=== PATIENT | female | born 1970 | race Two or more races ===

== ENCOUNTER → 2018-01-05 | Outpatient (CLI) | payer OTHER ==
[~2018-01-05] MED LIST: ARMOUR THYROID120 M1; BALANCED B; HCTZ; HYDROCHLOROTH12.5 M1; NABUMETONE500 MG PO; PANADOL EXTRA500 MG; PERCOCET 5/3251 TAB PO
== END | disposition home or self-care (01) ==
LOC: LAB 09:30
DX: D50.8 Other iron deficiency anemias (principal); I10 Essential (primary) hypertension; E03.8 Other specified hypothyroidism; D51.8 Other vitamin B12 deficiency anemias; A09 Infectious gastroenteritis and colitis, unspecified; E78.2 Mixed hyperlipidemia

== ENCOUNTER 2018-01-07 13:09 | Outpatient (CLI) | payer OTHER | END 2018-01-07 13:15 | disposition home or self-care (01) | LOC: LAB 13:09 | DX: D72.0 Genetic anomalies of leukocytes (principal) ==

== ENCOUNTER 2018-03-09 08:17 | Outpatient (CLI) | payer OTHER | END 2018-03-09 08:23 | disposition home or self-care (01) | LOC: LAB 08:17 | DX: Z02.1 Encounter for pre-employment examination (principal) ==

== ENCOUNTER 2018-05-01 08:07 | Outpatient (CLI) | payer OTHER | END 2018-05-01 08:15 | disposition home or self-care (01) | LOC: LAB 08:07 | DX: D55.0 Anemia due to glucose-6-phosphate dehydrogenase [G6PD] deficiency (principal); D68.8 Other specified coagulation defects; N39.0 Urinary tract infection, site not specified; I10 Essential (primary) hypertension; E03.8 Other specified hypothyroidism; E11.9 Type 2 diabetes mellitus without complications; D51.0 Vitamin B12 deficiency anemia due to intrinsic factor deficiency ==

== ENCOUNTER 2018-06-12 07:22 | Outpatient (CLI) | payer OTHER | END 2018-06-12 07:32 | disposition home or self-care (01) | LOC: LAB 07:22 | DX: N91.3 Primary oligomenorrhea (principal); E03.8 Other specified hypothyroidism ==

== ENCOUNTER 2018-06-16 12:32 | Outpatient (CLI) | payer OTHER | END 2018-06-16 15:53 | disposition home or self-care (01) | LOC: RAD 501 12:32 | DX: M75.102 Unspecified rotator cuff tear or rupture of left shoulder, not specified as traumatic (principal) ==

== ENCOUNTER 2018-08-12 14:25 | Outpatient (CLI) | payer OTHER | END 2018-08-12 14:40 | disposition home or self-care (01) | LOC: RAD 501 14:25 | DX: J22 Unspecified acute lower respiratory infection (principal) ==

== ENCOUNTER 2018-10-09 14:36 | Outpatient (CLI) | payer OTHER | END 2018-10-09 14:39 | disposition home or self-care (01) | LOC: MAMO-SONO 14:36 | DX: N60.11 Diffuse cystic mastopathy of right breast (principal); Z12.31 Encounter for screening mammogram for malignant neoplasm of breast ==

== ENCOUNTER 2018-12-11 08:38 | Outpatient (CLI) | payer OTHER | END 2018-12-11 08:45 | disposition home or self-care (01) | LOC: LAB 08:38 | DX: I10 Essential (primary) hypertension (principal); E03.8 Other specified hypothyroidism; E78.2 Mixed hyperlipidemia; E11.9 Type 2 diabetes mellitus without complications; I50.20 Unspecified systolic (congestive) heart failure; I26.90 Septic pulmonary embolism without acute cor pulmonale; I21.4 Non-ST elevation (NSTEMI) myocardial infarction ==

== ENCOUNTER → 2019-05-14 09:20 | Outpatient (CLI) | payer OTHER | END | disposition home or self-care (01) | LOC: RAD 09:20 | DX: M75.101 Unspecified rotator cuff tear or rupture of right shoulder, not specified as traumatic (principal); M75.102 Unspecified rotator cuff tear or rupture of left shoulder, not specified as traumatic; M54.2 Cervicalgia ==

== ENCOUNTER → 2019-07-21 | Outpatient (CLI) | payer OTHER | END | disposition home or self-care (01) | LOC: RAD 10:32 | DX: R05 Cough (principal) ==

== ENCOUNTER 2019-09-01 12:49 | Outpatient (CLI) | payer OTHER ==
[~2019-09-01] VITALS: Ht 162.6 cm; Wt 112.0 kg
== END 2019-09-01 13:15 | disposition home or self-care (01) ==
LOC: OFIC 805 12:49
DX: H81.12 Benign paroxysmal vertigo, left ear (principal)

== ENCOUNTER → 2019-10-01 | Outpatient (CLI) | payer OTHER | END | disposition home or self-care (01) | LOC: MRI 09:13 | DX: H81.10 Benign paroxysmal vertigo, unspecified ear (principal) | CPT/HCPCS: 70551 ==

== ENCOUNTER 2020-04-07 07:31 | Outpatient (CLI) | payer OTHER | END 2020-04-07 15:00 | disposition home or self-care (01) | LOC: LAB 07:31 | PROVIDERS: ATTEND Internal Medicine Hematology & Oncology | DX: E03.8 Other specified hypothyroidism (principal); I10 Essential (primary) hypertension; E11.9 Type 2 diabetes mellitus without complications; D51.3 Other dietary vitamin B12 deficiency anemia; N91.0 Primary amenorrhea; D55.0 Anemia due to glucose-6-phosphate dehydrogenase [G6PD] deficiency; R97.8 Other abnormal tumor markers; N80.0 Endometriosis of uterus; C54.1 Malignant neoplasm of endometrium ==

== ENCOUNTER 2020-04-07 10:30 | Outpatient (CLI) | payer OTHER | END 2020-04-07 10:37 | disposition home or self-care (01) | LOC: MAMO-SONO 10:30 | PROVIDERS: ATTEND Internal Medicine Hematology & Oncology | DX: Z12.31 Encounter for screening mammogram for malignant neoplasm of breast (principal); N63.10 Unspecified lump in the right breast, unspecified quadrant; N63.20 Unspecified lump in the left breast, unspecified quadrant ==

== ENCOUNTER 2020-05-04 09:38 | Outpatient (CLI) | payer OTHER | END 2020-05-04 16:29 | disposition home or self-care (01) | LOC: LAB 09:38 | PROVIDERS: ATTEND Internal Medicine Hematology & Oncology | DX: Z20.828 Contact with and (suspected) exposure to other viral communicable diseases (principal); Z11.59 Encounter for screening for other viral diseases ==

== ENCOUNTER → 2020-07-26 16:29 | Outpatient (CLI) | payer OTHER | END | disposition home or self-care (01) | LOC: LAB 16:29 | PROVIDERS: ATTEND Internal Medicine Hematology & Oncology | DX: J11.1 Influenza due to unidentified influenza virus with other respiratory manifestations (principal); Z20.828 Contact with and (suspected) exposure to other viral communicable diseases; R50.9 Fever, unspecified; D55.0 Anemia due to glucose-6-phosphate dehydrogenase [G6PD] deficiency; A49.8 Other bacterial infections of unspecified site ==

== ENCOUNTER 2020-08-08 17:39 | Outpatient (CLI) | payer OTHER | END 2020-08-08 19:14 | disposition home or self-care (01) | LOC: PPH VACUNA 17:39 | DX: Z23 Encounter for immunization (principal) ==

== ENCOUNTER → 2020-09-18 09:35 | Outpatient (CLI) | payer OTHER | END | disposition home or self-care (01) | LOC: LAB 09:35 | PROVIDERS: ATTEND Internal Medicine Hematology & Oncology | DX: Z20.828 Contact with and (suspected) exposure to other viral communicable diseases (principal); D50.8 Other iron deficiency anemias; I10 Essential (primary) hypertension; R05 Cough; E03.8 Other specified hypothyroidism; E11.9 Type 2 diabetes mellitus without complications; E78.2 Mixed hyperlipidemia; D51.3 Other dietary vitamin B12 deficiency anemia ==

== ENCOUNTER 2020-09-18 10:20 | Outpatient (CLI) | payer OTHER | END 2020-09-18 15:44 | disposition home or self-care (01) | LOC: TOM 10:20 → OFIC 805 10:20 → TOM 15:44 | PROVIDERS: ATTEND Radiology Diagnostic Radiology | DX: G45.1 Carotid artery syndrome (hemispheric) (principal) ==

== ENCOUNTER 2020-10-10 15:09 | Outpatient (CLI) | payer OTHER | END 2020-10-10 18:00 | disposition home or self-care (01) | LOC: PPH VACUNA 15:09 | DX: Z23 Encounter for immunization (principal) ==

== ENCOUNTER 2020-11-27 08:13 | Outpatient (CLI) | payer OTHER | END 2020-11-27 08:19 | disposition home or self-care (01) | LOC: LAB 08:13 | PROVIDERS: ATTEND Internal Medicine Hematology & Oncology | DX: D50.8 Other iron deficiency anemias (principal); I10 Essential (primary) hypertension; E03.8 Other specified hypothyroidism; E78.2 Mixed hyperlipidemia; D51.3 Other dietary vitamin B12 deficiency anemia; E11.9 Type 2 diabetes mellitus without complications ==

== ENCOUNTER 2021-01-07 01:27 | Emergency (ER) | payer OTHER ==
[~2021-01-07] VITALS: Ht 162.6 cm; Wt 105.2 kg
== END 2021-01-07 04:02 | disposition home or self-care (01) ==
LOC: ER 01:27
DX: R50.9 Fever, unspecified (principal); Z11.52 Encounter for screening for COVID-19

== ENCOUNTER → 2021-01-12 10:54 | Outpatient (CLI) | payer OTHER | END | disposition home or self-care (01) | LOC: LAB 10:54 | PROVIDERS: ATTEND Internal Medicine Hematology & Oncology | DX: Z03.818 Encounter for observation for suspected exposure to other biological agents ruled out (principal) ==

== ENCOUNTER 2021-03-12 11:30 | Outpatient (CLI) | payer OTHER | END 2021-03-12 12:14 | disposition home or self-care (01) | LOC: LAB 11:30 | PROVIDERS: ATTEND Internal Medicine Hematology & Oncology | DX: K57.32 Diverticulitis of large intestine without perforation or abscess without bleeding (principal) ==

== ENCOUNTER 2021-03-13 07:42 | Outpatient (CLI) | payer OTHER | END 2021-03-13 15:05 | disposition home or self-care (01) | LOC: TOM 07:42 | PROVIDERS: ATTEND Internal Medicine Hematology & Oncology | DX: K57.32 Diverticulitis of large intestine without perforation or abscess without bleeding (principal) ==

== ENCOUNTER → 2021-03-30 | Outpatient (CLI) | payer OTHER | END | disposition home or self-care (01) | LOC: LAB 10:07 | PROVIDERS: ATTEND Internal Medicine Hematology & Oncology | DX: D50.8 Other iron deficiency anemias (principal); I10 Essential (primary) hypertension; E78.2 Mixed hyperlipidemia; E03.8 Other specified hypothyroidism; E11.9 Type 2 diabetes mellitus without complications; N91.2 Amenorrhea, unspecified; M13.80 Other specified arthritis, unspecified site; R70.0 Elevated erythrocyte sedimentation rate; R79.82 Elevated C-reactive protein (CRP) ==

== ENCOUNTER 2021-07-27 14:50 | Outpatient (CLI) | payer OTHER | END 2021-07-27 15:04 | disposition home or self-care (01) | LOC: MAMO-SONO 14:50 | PROVIDERS: ATTEND Internal Medicine | DX: N63.10 Unspecified lump in the right breast, unspecified quadrant (principal) ==

== ENCOUNTER 2021-09-18 15:24 | Emergency (ER) | payer OTHER ==
[~2021-09-18] VITALS: Ht 162.6 cm; Wt 104.3 kg
== END 2021-09-18 18:33 | disposition home or self-care (01) ==
LOC: ER 15:24
DX: R07.89 Other chest pain (principal); R55 Syncope and collapse; Z03.818 Encounter for observation for suspected exposure to other biological agents ruled out; I10 Essential (primary) hypertension; E03.9 Hypothyroidism, unspecified

== ENCOUNTER 2021-10-19 10:15 | Outpatient (CLI) | payer OTHER | END 2021-10-19 16:54 | disposition home or self-care (01) | LOC: LAB 10:15 | PROVIDERS: ATTEND Internal Medicine Hematology & Oncology | DX: R05.1 Acute cough (principal) ==

== ENCOUNTER 2022-05-01 07:04 | Day surgery (SDC) | payer OTHER ==
[~2022-05-01] VITALS: Ht 163.8 cm; Wt 105.2 kg
[~2022-05-01 07:04] MED LIST changes: -HCTZ; +HCTZ PO; -HYDROCHLOROTH12.5 M1; +OMEPRAZOLE40 MG PO
== END 2022-05-01 17:00 | disposition home or self-care (01) ==
LOC: CIR.AMB 07:04
PROVIDERS: ATTEND Obstetrics & Gynecology
DX: N84.0 Polyp of corpus uteri (principal); Z20.822 Contact with and (suspected) exposure to COVID-19; Z88.8 Allergy status to other drugs, medicaments and biological substances; Z88.0 Allergy status to penicillin

== ENCOUNTER 2022-07-11 09:08 | Emergency (ER) | payer OTHER ==
[~2022-07-11] VITALS: Ht 162.6 cm; Wt 106.6 kg
[2022-07-11] MEDS ORDERED: ARMOUR THYROID90 MG PO (09:34)
== END 2022-07-11 12:21 | disposition home or self-care (01) ==
LOC: ER 09:08
DX: E86.0 Dehydration (principal); Z88.0 Allergy status to penicillin; Z88.6 Allergy status to analgesic agent; Z20.822 Contact with and (suspected) exposure to COVID-19

== ENCOUNTER → 2022-09-25 09:56 | Outpatient (CLI) | payer OTHER ==
[~2022-09-25 09:56] MED LIST changes: +ARMOUR THYROID90 MG PO
== END | disposition home or self-care (01) ==
LOC: PPH VACUNA 09:56
PROVIDERS: ATTEND Emergency Medicine Pediatric Emergency Medicine
DX: Z23 Encounter for immunization (principal)

== ENCOUNTER 2022-10-09 09:57 | Outpatient (CLI) | payer OTHER | END 2022-10-09 10:12 | disposition home or self-care (01) | LOC: LAB 09:57 | PROVIDERS: ATTEND Internal Medicine Rheumatology | DX: D64.9 Anemia, unspecified (principal); I10 Essential (primary) hypertension; E78.00 Pure hypercholesterolemia, unspecified; E03.9 Hypothyroidism, unspecified; E55.9 Vitamin D deficiency, unspecified; I00 Rheumatic fever without heart involvement; M05.79 Rheumatoid arthritis with rheumatoid factor of multiple sites without organ or systems involvement; M32.9 Systemic lupus erythematosus, unspecified ==

== ENCOUNTER 2023-02-14 11:39 | Outpatient (CLI) | payer OTHER | END 2023-02-14 15:09 | disposition home or self-care (01) | LOC: LAB 11:39 | PROVIDERS: ATTEND Internal Medicine Hematology & Oncology | DX: D50.8 Other iron deficiency anemias (principal); I10 Essential (primary) hypertension; D51.3 Other dietary vitamin B12 deficiency anemia; E78.2 Mixed hyperlipidemia; E03.8 Other specified hypothyroidism; E11.9 Type 2 diabetes mellitus without complications; N95.1 Menopausal and female climacteric states ==

== ENCOUNTER 2023-04-10 09:51 | Outpatient (CLI) | payer OTHER ==
[2023-04-10] MEDS ORDERED: OSEL75CA PO (10:09)
[2023-04-10] MEDS ORDERED: ZITHROMAX200 MG PO (10:09)
== END 2023-04-10 09:58 | disposition home or self-care (01) ==
LOC: LAB 09:51
PROVIDERS: ATTEND Internal Medicine Hematology & Oncology
DX: U07.1 COVID-19 (principal); J11.1 Influenza due to unidentified influenza virus with other respiratory manifestations; A49.3 Mycoplasma infection, unspecified site

== ENCOUNTER 2023-04-10 10:06 | Emergency (ER) | payer OTHER ==
[~2023-04-10] VITALS: Ht 162.6 cm; Wt 109.3 kg
[2023-04-10] MEDS ORDERED: OSEL75CA PO (10:09)
[2023-04-10] MEDS ORDERED: ZITHROMAX200 MG PO (10:09)
== END 2023-04-10 14:16 | disposition home or self-care (01) ==
LOC: ER 10:06
DX: U07.1 COVID-19 (principal); R53.81 Other malaise; E03.8 Other specified hypothyroidism; Z88.3 Allergy status to other anti-infective agents

== ENCOUNTER 2023-09-15 08:29 | Outpatient (CLI) | payer OTHER ==
[~2023-09-15 08:29] MED LIST changes: +OSEL75CA PO; +ZITHROMAX200 MG PO
== END 2023-09-15 08:36 | disposition home or self-care (01) ==
LOC: SONOGRAMA 08:29
PROVIDERS: ATTEND Pathology Anatomic Pathology & Clinical Pathology
DX: D34 Benign neoplasm of thyroid gland (principal); E04.9 Nontoxic goiter, unspecified

== ENCOUNTER 2024-07-30 11:03 | Outpatient (CLI) | payer OTHER ==
[2024-07-30 11:51] LABS: HEMATOCRIT 32.3 % (36.0-45.00); HEMOGLOBIN 10.9 g/dL (12.0-15.00); MEAN CELL VOLUME 78.5 fL (80.00-100.00); MEAN CORPUSCULAR HEMOGLOBIN 26.4 pg (27.00-32.0); MEAN CORPUSCULAR HGB CONC 33.6 g/dl (32.0-36.0); PLATELET COUNT 212 K/uL (150-450); RED BLOOD COUNT 4.11 M/uL (4.00-6.00); RED CELL DISTRIBUTION WIDTH 14.1 % (11.5-14.5)
[2024-07-30 13:23] LABS: ALBUMIN 3.4 gm/dL (3.4-5.0); BILIRUBIN TOTAL 0.43 mg/dL (0.3-1.2); CALCIUM 8.5 mg/dL (8.5-10.1); CHOL HDL RATIO 2.6 (0-5.0); CREATININE SERUM 0.43 mg/dL (0.55-1.02); GFR 151.89; GLOBULINA 3.5 G/DL (2.4-3.5); POTASSIUM 4.18 mEq/L (3.5-5.1); T4 FREE 0.87 NG/ML (0.76-1.46); TOTAL PROTEIN 6.9 gm/dL (6.4-8.2); TSH 2.3 uIU/mL (0.358-3.74)
[2024-07-30 14:44] LABS: CORTISOL 6.71 ug/dl; FOLIC ACID 9.6 ng/ml (4.78-20); VITAMIN D3 25 HYDROXY 24.56 ng/ml (30-120)
[2024-08-03 15:07] LABS: FOLLICLE STIMULATING HORMONE 21.7 mIU/mL (.); LEUTEINIZING HORMONE 18.5 mIU/mL (.)
== END 2024-07-30 11:42 | disposition home or self-care (01) ==
LOC: LAB 11:03
PROVIDERS: ATTEND Internal Medicine Hematology & Oncology
DX: R97.8 Other abnormal tumor markers (principal); R97.1 Elevated cancer antigen 125 [CA 125]; D50.8 Other iron deficiency anemias; I10 Essential (primary) hypertension; D51.3 Other dietary vitamin B12 deficiency anemia; E55.9 Vitamin D deficiency, unspecified; E78.2 Mixed hyperlipidemia; N91.2 Amenorrhea, unspecified

== ENCOUNTER 2024-08-13 11:02 | Outpatient (CLI) | payer OTHER ==
[2024-08-13 12:29] LABS: ALBUMIN 3.4 gm/dL (3.4-5.0); BILIRUBIN TOTAL 0.54 mg/dL (0.3-1.2); CALCIUM 8.7 mg/dL (8.5-10.1); CREATININE SERUM 0.52 mg/dL (0.55-1.02); GFR 121.98; GLOBULINA 3.7 G/DL (2.4-3.5); POTASSIUM 4.06 mEq/L (3.5-5.1); TOTAL PROTEIN 7.1 gm/dL (6.4-8.2)
[2024-08-13 12:31] LABS: PH,URINE 6.5 (5.0-8.0); URINE APPEARANCE Clear; URINE BILIRRUBIN Negative (NEGATIVE); URINE BLOOD Negative; URINE COLOR Yellow; URINE GLUCOSE Negative (NEGATIVE); URINE KETONE Negative (NEGATIVE); URINE LEUKOCYTE Negative; URINE NITRATE Negative; URINE PROTEIN Negative (NEGATIVE); URINE UROBILINOGEN 0.2 E.U./dl
[2024-08-13 12:32] LABS: URINE BACTERIA 343.9 uL (0.0-1933); URINE EPITHELIAL CELLS 23.3 uL (0.0-38.8); URINE RBC 2.9 uL (0.0-20.8); URINE WBC 8.1 uL (0.0-23.2)
[2024-08-15 06:35] LABS: INSULIN LEVELS 8.9 uIU/mL (2.6-24.9)
[2024-08-15 23:05] LABS: CALCITONIN < 2.0 pg/mL (0.0-5.0)
== END 2024-08-13 11:06 | disposition home or self-care (01) ==
LOC: LAB 11:02
PROVIDERS: ATTEND Internal Medicine
DX: E11.9 Type 2 diabetes mellitus without complications (principal); E34.9 Endocrine disorder, unspecified; E07.9 Disorder of thyroid, unspecified; E55.9 Vitamin D deficiency, unspecified; E53.9 Vitamin B deficiency, unspecified; E78.5 Hyperlipidemia, unspecified; N30.00 Acute cystitis without hematuria; I10 Essential (primary) hypertension

== ENCOUNTER 2024-10-13 11:05 | Outpatient (CLI) | payer OTHER | END 2024-10-13 13:40 | disposition home or self-care (01) | LOC: RAD 11:05 | DX: M17.12 Unilateral primary osteoarthritis, left knee (principal) ==

== ENCOUNTER 2025-05-06 09:39 | Outpatient (CLI) | payer OTHER ==
[2025-05-06 10:27] LABS: BASO % 0.9 % (0.1-1.2); EOS # 0.11 (0.04-0.54); EOS % 2.4 % (0.7-7.0); LYMPH # 2.15 (1.18-3.74); LYMPH % 47.3 % (19.3-53.1); MEAN PLATELET VOLUME 12.10 fl (9.4-12.4); MONO # 0.31 (0.24-0.82); MONO % 6.8 % (4.7-12.5); NEUT # 1.94 (1.56-6.13); NEUT % 42.6 % (34.0-71.1); RED CELL DISTRIBUTION WIDTH 14.0 % (11.6-14.4)
[2025-05-06 11:18] LABS: ALT/SGPT 24.0 U/L (12-78); AST/SGOT 15.0 U/L (15-37); BILIRUBIN TOTAL 0.46 mg/dL (0.3-1.2); BUN CREA RATIO 37.0 (7.0-25.0); CHOL HDL RATIO 2.8 (0-5.0); CREATININE SERUM 0.52 mg/dL (0.55-1.02); FE 47.0 ug/dl (50-170); GFR 121.98; GLOBULINA 3.6 G/DL (2.4-3.5); GLUCOSE FASTING 87.0 mg/dL (65-100); HDL 70.0 mg/dl (40-60); LDH 141.0 U/L (84-246); LDL 110.0 mg/dl (0-130); OSMOLALITY SERUM 285.0 MOSM/KG (275-295); T4 FREE 0.82 NG/ML (0.76-1.46); T4 TOTAL 6.9 UG/DL (4.8-13.9); TSH 1.96 uIU/mL (0.358-3.74); VLDL 13.0 (0-39)
[2025-05-06 13:11] LABS: T3 TOTAL 1.41 ng/ml (0.846-2.02)
[2025-05-06 13:12] LABS: FOLIC ACID 10.49 ng/ml (4.78-20)
[2025-05-07 05:07] LABS: LEUTEINIZING HORMONE 17.1 mIU/mL (.)
[2025-05-09 11:08] LABS: g6pd quant 120.0 (127-427)
[2025-05-10 23:07] LABS: ESTROGENO 122.0 pg/mL (40-244)
== END 2025-05-06 09:45 | disposition home or self-care (01) ==
LOC: LAB 09:39
PROVIDERS: ATTEND Internal Medicine Hematology & Oncology
DX: D50.8 Other iron deficiency anemias (principal); I10 Essential (primary) hypertension; D51.3 Other dietary vitamin B12 deficiency anemia; E78.2 Mixed hyperlipidemia; E03.8 Other specified hypothyroidism; N91.0 Primary amenorrhea; D55.0 Anemia due to glucose-6-phosphate dehydrogenase [G6PD] deficiency

== ENCOUNTER 2025-09-02 10:31 | Outpatient (CLI) | payer OTHER | END 2025-09-02 10:33 | disposition home or self-care (01) | LOC: MAMO-SONO 10:31 | PROVIDERS: ATTEND Internal Medicine Geriatric Medicine | DX: Z12.31 Encounter for screening mammogram for malignant neoplasm of breast (principal) ==